=== PATIENT | male | born 1935 | race Caucasian/White ===

== ENCOUNTER 2017-09-26 22:37 | Emergency (ER) | payer OTHER ==
[~2017-09-26] VITALS: Ht 188 cm; Wt 81.6 kg
[~2017-09-26 22:37] MED LIST: ALLOPURINOL; ATORVASTATIN CA10 MG; BETAMETHASONE D15 G3 TP; BUPROPION XL150 MG; CORTISONE25 MG; DIOVAN HCT 80-11 TAB; HYDRALAZINE; LISINOPRIL10 MG; RISPERDAL1 MG; TOPROL XL50 M1; VITACEL TABLET1 TAB; ZYRTEC10 MG PO; [UNRECOGNIZED DRUG - OTHER]
[2017-09-27] MEDS ORDERED: CENTANY30 GM TP (01:37)
[2017-09-27] MEDS ORDERED: CENTANY30 GM TOP (01:40)
== END 2017-09-27 01:44 | disposition home or self-care (01) ==
LOC: ER 22:37
DX: S50.812A Abrasion of left forearm, initial encounter (principal); W26.8XXA Contact with other sharp object(s), not elsewhere classified, initial encounter; Y93.89 Activity, other specified; Y92.098 Other place in other non-institutional residence as the place of occurrence of the external cause; Y99.8 Other external cause status

== ENCOUNTER → 2017-10-09 | Emergency (ER) | payer OTHER ==
[~2017-10-09] VITALS: Ht 182.9 cm; Wt 90.7 kg
[~2017-10-09] MED LIST changes: +ARICEPT5 MG; +CENTANY30 GM TOP; +CENTANY30 GM TP; +EFFEXOR XR75 MG; +HYDRALAZINE HCL25 MG; +MAXZIDE 37.5 M1 EACH; +MILLIPRED5 MG; +SYNTHROID112 MCG; +VALSARTAN80 MG; +ZYLOPRIM100 M1
== END | disposition home or self-care (01) ==
LOC: ER 18:34
DX: S22.42XA Multiple fractures of ribs, left side, initial encounter for closed fracture (principal); W06.XXXA Fall from bed, initial encounter; Y93.84 Activity, sleeping; Y92.098 Other place in other non-institutional residence as the place of occurrence of the external cause; Y99.8 Other external cause status

== ENCOUNTER 2017-10-17 04:04 | Inpatient (IN) | payer OTHER ==
[~2017-10-17] VITALS: Ht 182.9 cm; Wt 90.7 kg
[~2017-10-17 04:04] MED LIST changes: -ARICEPT5 MG; -EFFEXOR XR75 MG; -HYDRALAZINE HCL25 MG; -MAXZIDE 37.5 M1 EACH; -MILLIPRED5 MG; -SYNTHROID112 MCG; -VALSARTAN80 MG; -ZYLOPRIM100 M1
[2017-10-17] MEDS ORDERED: MILLIPRED5 MG (04:37)
[2017-10-17] MEDS ORDERED: SYNTHROID112 MCG (04:38)
[2017-10-17] MEDS ORDERED: ZYLOPRIM100 M1 (04:38)
[2017-10-17] MEDS ORDERED: ARICEPT5 MG (04:39)
[2017-10-17] MEDS ORDERED: HYDRALAZINE HCL25 MG (04:39)
[2017-10-17] MEDS ORDERED: VALSARTAN80 MG (04:41)
[2017-10-17] MEDS ORDERED: MAXZIDE 37.5 M1 EACH (04:41)
[2017-10-17] MEDS ORDERED: EFFEXOR XR75 MG (04:41)
[2017-10-24] MEDS ORDERED: PROTONIX40 MG PO (09:55)
== END 2017-10-24 12:15 | disposition home or self-care (01) | DRG 378 ==
LOC: ER 04:04 → MEDI 08:09 → ICU-2 08:09 → SEC-K 10-18 10:14 → MEDI 10-18 17:29 → MEDJ 10-18 19:00 → ICU 10-20 18:00 → SURH 10-23 17:49
PROC: 30233K1 Transfusion of Nonautologous Frozen Plasma into Peripheral Vein, Percutaneous Approach (ICD-10-PCS; 2017-10-17)
PROC: 30233N1 Transfusion of Nonautologous Red Blood Cells into Peripheral Vein, Percutaneous Approach (ICD-10-PCS; 2017-10-17)
PROC: BW21Y0Z Computerized Tomography (CT Scan) of Abdomen and Pelvis using Other Contrast, Unenhanced and Enhanced (ICD-10-PCS; 2017-10-17)
PROC: 0DJ08ZZ Inspection of Upper Intestinal Tract, Via Natural or Artificial Opening Endoscopic (ICD-10-PCS; principal; 2017-10-18)
PROC: 0W3P8ZZ Control Bleeding in Gastrointestinal Tract, Via Natural or Artificial Opening Endoscopic (ICD-10-PCS; 2017-10-19)
PROC: 3E0G8GC Introduction of Other Therapeutic Substance into Upper GI, Via Natural or Artificial Opening Endoscopic (ICD-10-PCS; 2017-10-19)
PROC: 02HV33Z Insertion of Infusion Device into Superior Vena Cava, Percutaneous Approach (ICD-10-PCS; 2017-10-19)
PROC: 3E0F7GC Introduction of Other Therapeutic Substance into Respiratory Tract, Via Natural or Artificial Opening (ICD-10-PCS; 2017-10-21)
DX: K26.4 Chronic or unspecified duodenal ulcer with hemorrhage (principal); D62 Acute posthemorrhagic anemia; E27.2 Addisonian crisis; I95.89 Other hypotension; R55 Syncope and collapse; D35.2 Benign neoplasm of pituitary gland; E03.8 Other specified hypothyroidism; Z79.52 Long term (current) use of systemic steroids

== ENCOUNTER → 2017-10-24 | Emergency (ER) | payer OTHER ==
[~2017-10-24] VITALS: Ht 180.3 cm; Wt 90.7 kg
[~2017-10-24] MED LIST changes: +ARICEPT5 MG; +EFFEXOR XR75 MG; +HYDRALAZINE HCL25 MG; +MAXZIDE 37.5 M1 EACH; +MILLIPRED5 MG; +PROTONIX40 MG PO; +SYNTHROID112 MCG; +VALSARTAN80 MG; +ZYLOPRIM100 M1
== END | disposition home or self-care (01) ==
LOC: ER 18:42
DX: K92.1 Melena (principal)

== ENCOUNTER 2017-11-23 19:49 | Emergency (ER) | payer OTHER ==
[~2017-11-23] VITALS: Ht 170.2 cm; Wt 83.9 kg
== END 2017-11-24 08:17 | disposition home or self-care (01) ==
LOC: ER 19:49
DX: E27.49 Other adrenocortical insufficiency (principal)

== ENCOUNTER 2017-12-26 05:45 | Day surgery (SDC) | payer OTHER | END 2017-12-26 12:15 | disposition home or self-care (01) | LOC: AMB-ENDOS 05:45 → CIR.AMB 13:30 → AMB-ENDOS 13:30 | DX: K29.60 Other gastritis without bleeding (principal) ==

== ENCOUNTER 2018-01-23 10:34 | Outpatient (CLI) | payer OTHER | END 2018-01-23 10:46 | disposition home or self-care (01) | LOC: RAD 501 10:34 | DX: J98.11 Atelectasis (principal) ==

== ENCOUNTER 2018-01-30 08:03 | Outpatient (CLI) | payer OTHER | END 2018-01-30 09:00 | disposition home or self-care (01) | LOC: NUCLEAR 08:03 | DX: R60.0 Localized edema (principal); R26.2 Difficulty in walking, not elsewhere classified; G82.20 Paraplegia, unspecified ==

== ENCOUNTER → 2018-02-06 | Outpatient (CLI) | payer OTHER | END | disposition home or self-care (01) | LOC: MAMO-SONO 07:45 → SONOGRAMA 07:52 | DX: N28.0 Ischemia and infarction of kidney (principal); C61 Malignant neoplasm of prostate ==

== ENCOUNTER 2018-02-10 11:26 | Outpatient (CLI) | payer OTHER | END 2018-02-10 11:38 | disposition home or self-care (01) | LOC: SONOGRAMA 11:26 | DX: J92.0 Pleural plaque with presence of asbestos (principal) ==

== ENCOUNTER → 2018-02-15 | Outpatient (CLI) | payer OTHER | END | disposition home or self-care (01) | LOC: WOUND MED 10:21 | DX: L98.491 Non-pressure chronic ulcer of skin of other sites limited to breakdown of skin (principal) | CPT/HCPCS: A4554; A4930; A6212; A6216; A6266; G0463 ==

== ENCOUNTER → 2018-02-22 | Outpatient (CLI) | payer OTHER | END | disposition home or self-care (01) | LOC: WOUND MED 10:14 | DX: L98.491 Non-pressure chronic ulcer of skin of other sites limited to breakdown of skin (principal) | CPT/HCPCS: G0463; A4554; A4930; A6216 ==

== ENCOUNTER → 2018-03-01 | Outpatient (CLI) | payer OTHER | END | disposition home or self-care (01) | LOC: WOUND MED 11:13 | DX: L98.491 Non-pressure chronic ulcer of skin of other sites limited to breakdown of skin (principal) | CPT/HCPCS: G0463; A4554; A4930; A6216 ==

== ENCOUNTER 2018-06-06 19:16 | Emergency (ER) | payer OTHER ==
[~2018-06-06] VITALS: Ht 185.4 cm; Wt 93.0 kg
[2018-06-06] MEDS ORDERED: LASIX20 MG (19:33)
[2018-06-06] MEDS ORDERED: LOSARTAN POTASS50 MG (19:35)
[2018-06-07] MEDS ORDERED: AMOX-CLAV 875-1 EACH PO (01:30)
== END 2018-06-07 01:45 | disposition home or self-care (01) ==
LOC: ER 19:16 → CPU-OBS 19:40 → ER 19:40
DX: R07.89 Other chest pain (principal); S50.811A Abrasion of right forearm, initial encounter; W18.09XA Striking against other object with subsequent fall, initial encounter; Y93.89 Activity, other specified; Y92.018 Other place in single-family (private) house as the place of occurrence of the external cause; Y99.8 Other external cause status

== ENCOUNTER 2018-06-12 19:26 | Inpatient (IN) | payer OTHER ==
[~2018-06-12] VITALS: Ht 182.9 cm; Wt 95.3 kg
[~2018-06-12 19:26] MED LIST changes: +AMOX-CLAV 875-1 EACH PO; +LASIX20 MG; +LOSARTAN POTASS50 MG
[2018-06-12] MEDS ORDERED: VITAMIN D1000 UNIT (20:43)
[2018-06-16] MEDS ORDERED: METOPROLOL TART50 MG PO (10:01)
[2018-06-16] MEDS ORDERED: LOSARTAN POTASS25 MG PO (10:01)
[2018-06-16] MEDS ORDERED: LASIX20 MG PO (10:02)
[2018-06-16] MEDS ORDERED: Prednisone PO (10:06)
[2018-06-16] MEDS ORDERED: SYNTHROID88 MCG PO (10:06)
[2018-06-16] MEDS ORDERED: LEVAQUIN750 MG PO (10:08)
== END 2018-06-16 13:58 | disposition home or self-care (01) | DRG 291 ==
LOC: ER 19:26 → MEDI 06-13 08:50 → EDBD 06-16 13:58
PROC: 4A12X4Z Monitoring of Cardiac Electrical Activity, External Approach (ICD-10-PCS; principal; 2018-06-13)
PROC: 3E0F7GC Introduction of Other Therapeutic Substance into Respiratory Tract, Via Natural or Artificial Opening (ICD-10-PCS; 2018-06-13)
PROC: 4A033R1 Measurement of Arterial Saturation, Peripheral, Percutaneous Approach (ICD-10-PCS; 2018-06-14)
PROC: B54DZZZ Ultrasonography of Bilateral Lower Extremity Veins (ICD-10-PCS; 2018-06-14)
PROC: BW24ZZZ Computerized Tomography (CT Scan) of Chest and Abdomen (ICD-10-PCS; 2018-06-14)
DX: I11.0 Hypertensive heart disease with heart failure (principal); J18.9 Pneumonia, unspecified organism; E27.1 Primary adrenocortical insufficiency; I50.33 Acute on chronic diastolic (congestive) heart failure; R09.02 Hypoxemia; E66.01 Morbid (severe) obesity due to excess calories; G47.33 Obstructive sleep apnea (adult) (pediatric); D35.2 Benign neoplasm of pituitary gland; E03.8 Other specified hypothyroidism; I87.2 Venous insufficiency (chronic) (peripheral)

== ENCOUNTER 2018-06-19 10:56 | Emergency (ER) | payer OTHER ==
[~2018-06-19] VITALS: Ht 185.4 cm; Wt 91.2 kg
[~2018-06-19 10:56] MED LIST changes: +LASIX20 MG PO; +LEVAQUIN750 MG PO; +LOSARTAN POTASS25 MG PO; +METOPROLOL TART50 MG PO; +Prednisone PO; +SYNTHROID88 MCG PO; +VITAMIN D1000 UNIT
== END 2018-06-19 19:53 | disposition home or self-care (01) ==
LOC: ER 10:56 → EDBD 11:33 → ER 11:33
DX: R53.1 Weakness (principal); S40.812A Abrasion of left upper arm, initial encounter; S40.811A Abrasion of right upper arm, initial encounter; X58.XXXA Exposure to other specified factors, initial encounter; Y93.89 Activity, other specified; Y92.89 Other specified places as the place of occurrence of the external cause; Y99.8 Other external cause status

== ENCOUNTER 2018-06-30 11:08 | Emergency (ER) | payer OTHER ==
[~2018-06-30] VITALS: Ht 185.4 cm; Wt 95.3 kg
[~2018-06-30 11:08] MED LIST changes: -MILLIPRED5 MG
[2018-06-30] MEDS ORDERED: MILLIPRED5 MG PO (11:16)
== END 2018-07-01 03:14 | disposition home or self-care (01) ==
LOC: ER 11:08
DX: R53.1 Weakness (principal); R55 Syncope and collapse; E27.1 Primary adrenocortical insufficiency; E27.49 Other adrenocortical insufficiency; F32.89 Other specified depressive episodes

== ENCOUNTER → 2018-08-02 | Outpatient (CLI) | payer OTHER ==
[~2018-08-02] MED LIST changes: +LIPITOR40 MG; +LOPRESSOR25 MG; +MILLIPRED5 MG PO; +PROTONIX40 MG
== END | disposition home or self-care (01) ==
LOC: WOUND MED 11:15
DX: L98.491 Non-pressure chronic ulcer of skin of other sites limited to breakdown of skin (principal)
CPT/HCPCS: G0463; A4554; A4930; A6216; A6266

== ENCOUNTER 2018-08-18 14:48 | Emergency (ER) | payer OTHER ==
[~2018-08-18] VITALS: Ht 185.4 cm; Wt 93.0 kg
[~2018-08-18 14:48] MED LIST changes: -LIPITOR40 MG; -LOPRESSOR25 MG; -PROTONIX40 MG
[2018-08-18] MEDS ORDERED: LIPITOR40 MG (15:12)
[2018-08-18] MEDS ORDERED: LOPRESSOR25 MG (15:12)
[2018-08-18] MEDS ORDERED: PROTONIX40 MG (15:12)
== END 2018-08-19 12:20 | disposition home or self-care (01) ==
LOC: ER 14:48
DX: R53.1 Weakness (principal); F32.89 Other specified depressive episodes; R63.0 Anorexia

== ENCOUNTER 2018-09-01 11:22 | Emergency (ER) | payer OTHER ==
[~2018-09-01] VITALS: Ht 185.4 cm; Wt 93.0 kg
[~2018-09-01 11:22] MED LIST changes: +LIPITOR40 MG; +LOPRESSOR25 MG; +PROTONIX40 MG
== END 2018-09-01 21:34 | disposition home or self-care (01) ==
LOC: ER 11:22 → CPU-OBS 11:44 → ER 11:44
DX: S20.212A Contusion of left front wall of thorax, initial encounter (principal); S20.211A Contusion of right front wall of thorax, initial encounter; R07.89 Other chest pain; W18.39XA Other fall on same level, initial encounter; Y93.89 Activity, other specified; Y92.098 Other place in other non-institutional residence as the place of occurrence of the external cause; Y99.8 Other external cause status

== ENCOUNTER → 2018-10-13 | Outpatient (CLI) | payer OTHER | END | disposition home or self-care (01) | LOC: NUCLEAR 09-15 11:00 | DX: I50.1 Left ventricular failure, unspecified (principal) ==

== ENCOUNTER 2018-11-08 09:53 | Outpatient (CLI) | payer OTHER | END 2018-11-08 16:46 | disposition home or self-care (01) | LOC: RAD 09:53 | DX: M54.6 Pain in thoracic spine (principal); M54.5 Low back pain ==

== ENCOUNTER 2018-11-23 16:52 | Emergency (ER) | payer OTHER ==
[~2018-11-23] VITALS: Ht 180.3 cm; Wt 93.4 kg
[2018-11-23] MEDS ORDERED: RISPERDAL0.5 MG PO (17:02)
[2018-11-23] MEDS ORDERED: EFFEXOR XR75 MG PO (17:02)
== END 2018-11-23 22:23 | disposition home or self-care (01) ==
LOC: ER 16:52
DX: R53.1 Weakness (principal); E16.1 Other hypoglycemia

== ENCOUNTER 2019-01-05 08:18 | Inpatient (IN) | payer OTHER ==
[~2019-01-05] VITALS: Ht 185.4 cm; Wt 97.5 kg
[~2019-01-05 08:18] MED LIST changes: +EFFEXOR XR75 MG PO; +RISPERDAL0.5 MG PO
== END 2019-01-16 12:26 | disposition home health service (06) | DRG 643 ==
LOC: ER 08:18 → MEDJ 16:38 → SEC-K 16:38 → MEDJ 17:24
PROVIDERS: ADMIT Student in an Organized Health Care Education/Training Program
PROC: 4A033R1 Measurement of Arterial Saturation, Peripheral, Percutaneous Approach (ICD-10-PCS; principal; 2019-01-05)
PROC: 0T9B70Z Drainage of Bladder with Drainage Device, Via Natural or Artificial Opening (ICD-10-PCS; 2019-01-05)
PROC: 02HV33Z Insertion of Infusion Device into Superior Vena Cava, Percutaneous Approach (ICD-10-PCS; 2019-01-07)
PROC: BW40ZZZ Ultrasonography of Abdomen (ICD-10-PCS; 2019-01-08)
DX: E27.2 Addisonian crisis (principal); J18.9 Pneumonia, unspecified organism; I50.33 Acute on chronic diastolic (congestive) heart failure; N39.0 Urinary tract infection, site not specified; F32.0 Major depressive disorder, single episode, mild; I13.0 Hypertensive heart and chronic kidney disease with heart failure and stage 1 through stage 4 chronic kidney disease, or unspecified chronic kidney disease; E27.49 Other adrenocortical insufficiency; E03.8 Other specified hypothyroidism; R63.0 Anorexia; I11.0 Hypertensive heart disease with heart failure; J32.0 Chronic maxillary sinusitis; G20 Parkinson's disease; D35.2 Benign neoplasm of pituitary gland; Z74.01 Bed confinement status; N18.2 Chronic kidney disease, stage 2 (mild); G93.89 Other specified disorders of brain; M54.6 Pain in thoracic spine; K76.89 Other specified diseases of liver; B96.5 Pseudomonas (aeruginosa) (mallei) (pseudomallei) as the cause of diseases classified elsewhere

== ENCOUNTER 2019-02-14 17:43 | Inpatient (IN) | payer OTHER ==
[~2019-02-14] VITALS: Ht 190.5 cm; Wt 111.1 kg
--- NOTE | 2019-02-14 18:09 | NUR ---
FAMILIAR REFIERE DOLOR ABDOMINAL SE TOMANNS/V YS EUBIAC EN AREA DE OBSERVACION
--- NOTE | 2019-02-14 18:41 | NUR ---
PACIENTE ALERTA Y ORIENTADO EVALUADO POR EL DR. CAGE SE ORIENTA A PACIENTE SOBRE TRATAMEINTO MEDICO SE EXTRAEN MUESTRAS DE LINDA Y SE ADMISNITRAN MEDICAMENTOS RODERICK ORDEN MEDICA BAJO MEDIDAS ASEPTICAS. SE CATATERIZA ORINA.
--- NOTE | 2019-02-15 01:15 | NUR ---
SE RECIBE PACIENTE EN ABILIO.DESPIERTO ALERTA Y ORIENTADO.ACOMPANADO POR FAMILIAR.AREA DE VENOPUNCION ESTA LIMPIA Y SECA,LEELEE DE EDEMA. DADO DE DELFINO POR ORDENES DE .AL NO TENER DISPONIBLE TRASPORTACION SE LE PERMITE PERMANECER EN CAMA HASTA POR LA MANANA.
--- NOTE | 2019-02-15 10:15 | NUR ---
DR RODRIGUEZ ORDENA NO DONTA DE DELFINO A PACIENTE DEBIDO A QUE DEBE CONSULTAR CON MEDICINA INTERNA.
--- NOTE | 2019-02-15 15:10 | NUR ---
PTE ALERTA Y ORIENADO X 3 ESFERAS EN CAMA CON BARANDAS ELEVADAS,EN COMPANIA DE FAMILIARES.AREA DE VENOPUNCION PATENTE Y LEELEE DE EDEMA,PTE CON NOEMÍ CPAP COLOCADO,PENDIENTE A EVALUACION DE DR TARANGO.
--- NOTE | 2019-02-15 16:48 | NUR ---
MR COLON REALIZA CAMBIO DE PANAL Y POSICION.
[2019-02-20] MEDS ORDERED: CORTISONE25 MG PO (13:46)
== END 2019-02-20 15:46 | disposition home or self-care (01) | DRG 194 ==
LOC: ER 17:43 → MEDJ 02-15 16:58
PROVIDERS: ADMIT Student in an Organized Health Care Education/Training Program
PROC: BW24ZZZ Computerized Tomography (CT Scan) of Chest and Abdomen (ICD-10-PCS; principal; 2019-02-15)
PROC: 4A033R1 Measurement of Arterial Saturation, Peripheral, Percutaneous Approach (ICD-10-PCS; 2019-02-15)
PROC: 3E0F7GC Introduction of Other Therapeutic Substance into Respiratory Tract, Via Natural or Artificial Opening (ICD-10-PCS; 2019-02-15)
PROC: 0T9B70Z Drainage of Bladder with Drainage Device, Via Natural or Artificial Opening (ICD-10-PCS; 2019-02-16)
DX: J18.1 Lobar pneumonia, unspecified organism (principal); J98.11 Atelectasis; N39.0 Urinary tract infection, site not specified; N17.8 Other acute kidney failure; E27.49 Other adrenocortical insufficiency; G47.31 Primary central sleep apnea; E03.8 Other specified hypothyroidism; R09.02 Hypoxemia; I12.9 Hypertensive chronic kidney disease with stage 1 through stage 4 chronic kidney disease, or unspecified chronic kidney disease; N18.2 Chronic kidney disease, stage 2 (mild); G20 Parkinson's disease; D35.2 Benign neoplasm of pituitary gland; R31.29 Other microscopic hematuria

== ENCOUNTER 2019-03-20 11:18 | Inpatient (IN) | payer OTHER ==
[~2019-03-20] VITALS: Ht 185.4 cm; Wt 99.8 kg
[~2019-03-20 11:18] MED LIST changes: +CORTISONE25 MG PO; -LIPITOR40 MG; +LIPITOR40 MG PO; -PROTONIX40 MG
[2019-03-20] MEDS ORDERED: LOPRESSOR HCT1 EACH PO (12:15)
[2019-03-20] MEDS ORDERED: SYNTHROID100 MCG PO (12:17)
--- NOTE | 2019-03-20 12:19 | NUR ---
PTE VINO POR AMBULANCIA POR HIPOTENSION Y DECIMAS DE FIEBRE. PTE LLEGA ALERTA X1
--- NOTE | 2019-03-20 13:38 | NUR ---
MS BURKS ORIENTA A PACIENTE SOBRE ORDENES MEDICAS. COLECTA MUESTRAS DE LABORATORIO ORDENADAS BAJO MEDIDAS ASEPTICAS. PENDIENTE A RESULTADOS DE LABORATORIO PARA RE-EVALUACION MEDICA.
--- NOTE | 2019-03-20 15:22 | NUR ---
PACIENTE ALERTA Y ORIENTADO EN NOEMÍ CHINEDU ESFERAS, PRESENTA BUEN PATRON RESPIRATORIO Y LEELEE DE DOLOR. SALINE LOCK EN BRAZO LT PATENTE Y LEELEE DE S/S DE FLEBITIS E INFILTRACION. PENDIENTE EVALUACION DE MEDICINA INTERNA DR TARANGO Y CARDIOLOGO DR PEREZ.
[2019-03-28] MEDS ORDERED: HYDRALAZINE HCL50 MG PO (17:14)
== END 2019-03-28 18:14 | disposition home or self-care (01) | DRG 871 ==
LOC: ER 11:18 → MEDJ 15:49 → SEC-K 15:49 → MEDJ 17:02
PROVIDERS: ADMIT Student in an Organized Health Care Education/Training Program
PROC: BT4JZZZ Ultrasonography of Kidneys and Bladder (ICD-10-PCS; principal; 2019-03-20)
PROC: 0T9B70Z Drainage of Bladder with Drainage Device, Via Natural or Artificial Opening (ICD-10-PCS; 2019-03-20)
PROC: 4A033R1 Measurement of Arterial Saturation, Peripheral, Percutaneous Approach (ICD-10-PCS; 2019-03-23)
DX: A41.9 Sepsis, unspecified organism (principal); J18.9 Pneumonia, unspecified organism; N17.8 Other acute kidney failure; N39.0 Urinary tract infection, site not specified; J98.11 Atelectasis; E27.1 Primary adrenocortical insufficiency; I12.9 Hypertensive chronic kidney disease with stage 1 through stage 4 chronic kidney disease, or unspecified chronic kidney disease; N18.3 Chronic kidney disease, stage 3 (moderate); R31.0 Gross hematuria; G47.31 Primary central sleep apnea; F32.9 Major depressive disorder, single episode, unspecified; Z79.52 Long term (current) use of systemic steroids; Z74.01 Bed confinement status

== ENCOUNTER 2019-06-08 00:20 | Inpatient (IN) | payer OTHER ==
[~2019-06-08] VITALS: Ht 182.9 cm; Wt 97.5 kg
[~2019-06-08 00:20] MED LIST changes: +HYDRALAZINE HCL50 MG PO; +LOPRESSOR HCT1 EACH PO; +SYNTHROID100 MCG PO
--- NOTE | 2019-06-08 00:33 | NUR ---
FAMILAIR REFIERE QUE CHARLES ESPOSA TIENE DIFICULTAD AL RESPIRAR SE OBSERVA PTE CON EXTREMIDADES INFERIORES CON EDEMA SE UBICA PTE EN MONITOR CARDIACO Y OXYMETRIA DE PULSO.
--- NOTE | 2019-06-08 02:29 | NUR ---
SE ORIENTA PTE Y FAMILIAR SOBRE TX MEDICO EL CUAL REFIERE ENTENDER,SE LE EXTRAE MUESTRAS BAJO MEDIDAS ASEPTICAS,SE CANALIZA Y SE ADMINISTRA MEDICAMENTO RODERICK ORDEN MEDICA.SE NOTIFICAN ABG Y TERAPIAS RESP A MR PACHECO.SE REALIZA EKG POR MS CLIFTON Y SE MUESTRA A DR ESTRADA.
== END 2019-07-26 16:06 | disposition expired | DRG 871 ==
LOC: ER 00:20 → SURH 07:24 → SEC-K 07:24 → SURH 08:14
PROVIDERS: ADMIT Student in an Organized Health Care Education/Training Program
PROC: BT4JZZZ Ultrasonography of Kidneys and Bladder (ICD-10-PCS; 2019-06-08)
PROC: B246ZZZ Ultrasonography of Right and Left Heart (ICD-10-PCS; 2019-06-08)
PROC: 3E0F7GC Introduction of Other Therapeutic Substance into Respiratory Tract, Via Natural or Artificial Opening (ICD-10-PCS; 2019-06-08)
PROC: 4A12X4Z Monitoring of Cardiac Electrical Activity, External Approach (ICD-10-PCS; 2019-06-08)
PROC: 4A033R1 Measurement of Arterial Saturation, Peripheral, Percutaneous Approach (ICD-10-PCS; 2019-06-08)
PROC: 0T9B70Z Drainage of Bladder with Drainage Device, Via Natural or Artificial Opening (ICD-10-PCS; 2019-06-08)
PROC: 02HV33Z Insertion of Infusion Device into Superior Vena Cava, Percutaneous Approach (ICD-10-PCS; 2019-06-09)
PROC: BW40ZZZ Ultrasonography of Abdomen (ICD-10-PCS; 2019-06-12)
PROC: BB24ZZZ Computerized Tomography (CT Scan) of Bilateral Lungs (ICD-10-PCS; 2019-06-14)
PROC: 5A09457 Assistance with Respiratory Ventilation, 24-96 Consecutive Hours, Continuous Positive Airway Pressure (ICD-10-PCS; 2019-06-15)
PROC: BW28ZZZ Computerized Tomography (CT Scan) of Head (ICD-10-PCS; 2019-07-06)
PROC: 30233N1 Transfusion of Nonautologous Red Blood Cells into Peripheral Vein, Percutaneous Approach (ICD-10-PCS; 2019-07-07)
PROC: 0W9B30Z Drainage of Left Pleural Cavity with Drainage Device, Percutaneous Approach (ICD-10-PCS; principal; 2019-07-12)
DX: A41.9 Sepsis, unspecified organism (principal); J18.1 Lobar pneumonia, unspecified organism; J96.01 Acute respiratory failure with hypoxia; B37.1 Pulmonary candidiasis; N17.8 Other acute kidney failure; I50.42 Chronic combined systolic (congestive) and diastolic (congestive) heart failure; J98.11 Atelectasis; I13.0 Hypertensive heart and chronic kidney disease with heart failure and stage 1 through stage 4 chronic kidney disease, or unspecified chronic kidney disease; N39.0 Urinary tract infection, site not specified; E27.1 Primary adrenocortical insufficiency; E87.0 Hyperosmolality and hypernatremia; E87.2 Acidosis; E27.49 Other adrenocortical insufficiency; J90 Pleural effusion, not elsewhere classified; K92.1 Melena; D62 Acute posthemorrhagic anemia; K92.0 Hematemesis; D63.1 Anemia in chronic kidney disease; K29.00 Acute gastritis without bleeding; E86.0 Dehydration; E11.22 Type 2 diabetes mellitus with diabetic chronic kidney disease; I08.0 Rheumatic disorders of both mitral and aortic valves; N18.2 Chronic kidney disease, stage 2 (mild); N39.8 Other specified disorders of urinary system; E03.8 Other specified hypothyroidism; R91.8 Other nonspecific abnormal finding of lung field; G47.31 Primary central sleep apnea; Z74.01 Bed confinement status; Z99.81 Dependence on supplemental oxygen; Z79.84 Long term (current) use of oral hypoglycemic drugs; Z66 Do not resuscitate; F41.8 Other specified anxiety disorders